=== PATIENT | female | born 1995 | race Caucasian/White ===

== ENCOUNTER 2019-08-31 09:32 | Emergency (ER) | payer MEDICAID ==
[~2019-08-31] VITALS: Ht 160 cm; Wt 68.0 kg
--- NOTE | 2019-08-31 10:03 | PHYS DOC ---
Adult General Chief Complaint Chief Complaint: FLU SYMPTOM HPI HPI Patient is a 23-year-old female who presents to the ER with complaint of fever, body aches, sore throat and congestion with drainage. Patient reports symptom onset yesterday. She has been taking ibuprofen and Tylenol. 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 Patient does not have exposure to coronavirus. She denies shortness of breath Review of Systems Review of Systems All other systems were reviewed and found to be within normal limits, except as documented in this note. Physical Exam Physical Exam Constitutional: Well developed, well nourished, no acute distress, non-toxic appearance. [] HENT: Normocephalic, atraumatic, bilateral external ears normal, oropharynx moist, no oral exudates, nose normal. Mild posterior pharynx erythema Eyes: PERRLA, EOMI, conjunctiva normal, no discharge. [] Neck: Normal range of motion, no tenderness, supple, no stridor. [] Cardiovascular:Heart rate regular rhythm, no murmur [] Lungs & Thorax: Bilateral breath sounds clear to auscultation [] Abdomen: Bowel sounds normal, soft, no tenderness, no masses, no pulsatile masses. [] Skin: Warm, dry, no erythema, no rash. [] Back: No tenderness, no CVA tenderness. [] Extremities: No tenderness, no cyanosis, no clubbing, ROM intact, no edema. [] Neurologic: Alert and oriented X 3, normal motor function, normal sensory function, no focal deficits noted. [] Psychologic: Affect normal, judgement normal, mood normal. [] EKG EKG [] Radiology/Procedures Radiology/Procedures [] Course & Med Decision Making Course & Med Decision Making Pertinent Labs and Imaging studies reviewed. (See chart for details) This patient is seen for fever, body aches, sore throat. Will check for strep and flu. Health department contacted and the patient is not a candidate to be tested for coronavirus. Patient strep and flu are negative. She likely has a viral upper respiratory infection. Will discharge home with instructions to return as needed. Dragon Disclaimer Dragon Disclaimer This electronic medical record was generated, in whole or in part, using a voice recognition dictation system. Departure Departure: Impression: Primary Impression: Viral syndrome Disposition: HOME, SELF-CARE Condition: STABLE Referrals: PCP,NO (PCP) Additional Instructions: Please take ibuprofen and Tylenol alternating every 3-4 hours for fever or body aches. Please return to the ER for worsening symptoms. ZHENG MCBRIDE DO Aug 31, 2019 10:03
[2019-08-31 10:27] VITALS: BP 136/65
[2019-08-31 10:40] LABS: INFLUENZA A PATIENT NEGATIVE (NEGATIVE); INFLUENZA B PATIENT NEGATIVE (NEGATIVE)
== END 2019-08-31 11:15 | disposition home or self-care (01) ==
LOC: ER 09:32
DX: B34.9 Viral infection, unspecified (principal)
CPT/HCPCS: 87804; 99283

== ENCOUNTER 2021-02-02 01:23 | Emergency (ER) | payer MEDICAID ==
[~2021-02-02] VITALS: Ht 160 cm; Wt 66.5 kg
[2021-02-02] MEDS ORDERED: DEXAMETHASONE 4 MG TABLET PO ONE (01:45)
[2021-02-02] MEDS ORDERED: IBUPROFEN 600 MG TABLET. PO ONE (01:45)
--- NOTE | 2021-02-02 01:48 | PHYS DOC ---
Past History Past Medical History: No Pertinent History Past Surgical History: No Surgical History Alcohol Use: None General Adult EDM: Chief Complaint: FEVER HPI: HPI: 25-year-old female presents with report of body aches, generalized malaise, fatigue, and sore throat. Reports symptoms have been ongoing for the past 3 days. Patient reports she was seen at urgent care yesterday and swabbed for COVID-19. Patient does report she has not been immunized for COVID-19. Denies . Denies known sick contacts. Denies known exposure to COVID-19. Patient was instructed that if symptoms worsened to present to the emergency department. Patient reports she felt worse this evening. Reports fever has been ongoing. Patient reports she last took Tylenol approximately 3.5 hours ago. Review of Systems: Review of Systems: Constitutional: Reports fever and chills Eyes: Denies redness or eye pain HENT: Denies nasal congestion; reports sore throat Respiratory: Denies cough or shortness of breath Cardiovascular: Denies chest pain or palpitations GI: Denies abdominal pain, nausea, or vomiting : Denies dysuria or hematuria Musculoskeletal: Denies back pain or joint pain Integument: Denies rash or skin lesions Neurologic: Reports headache; denies focal weakness or sensory changes Complete systems were reviewed and found to be within normal limits, except as documented in this note. Allergies: Allergies: Allergies Coded Allergies Type Severity Reaction Last Updated Verified amoxicillin Allergy Unknown 02/02/21 Yes Physical Exam: PE: Constitutional: Well developed, well nourished, no acute distress, ill but non- toxic appearance HENT: Normocephalic, atraumatic, pharynx clear without exudate or significant erythema, TMs clear bilaterally Eyes: PERRL, EOMI, conjunctiva normal, no discharge, no nystagmus Neck: Normal range of motion, paraspinal tenderness noted, supple, no meningeal signs Lungs & Thorax: No respiratory distress, equal chest rise and fall Abdomen: Soft, no tenderness, no guarding/rebound tenderness/distention Skin: Warm, dry, no erythema, no rash Extremities: No tenderness, ROM intact, no edema Neurologic: Alert and oriented X 3, no focal deficits noted Psychologic: Affect normal, judgment normal Current Patient Data: Vital Signs: Vital Signs Date Time Temp Pulse Resp B/P (MAP) Pulse Ox O2 Delivery O2 Flow Rate FiO2 02/02/21 01:30 103.1 141 28 129/69 98 Room Air EKG: EKG: [] Radiology/Procedures: Radiology/Procedures: PROCEDURE: CHEST AP ONLY AP chest x-ray HISTORY: Upper respiratory infection, Covid infection person under investigation. FINDINGS: Heart size normal. Mediastinal silhouette is normal. No pneumothorax, pulmonary opacities or pleural effusions. The bones are unremarkable. IMPRESSION: Normal exam. Electronically signed by: Broderick Keita MD (02/02/2021 2:18 AM) [facility] Heart Score: C/O Chest Pain: N/A Course & Med Decision Making: Course & Med Decision Making Pertinent Labs and Imaging studies reviewed. (See chart for details) Patient presents with HPI and physical exam consistent for viral syndrome. Patient recently tested for COVID-19 with results pending. Patient complains of sore throat. Rapid strep negative. Symptomatic treatment provided. Fever addressed. CXR without acute process. Patient stable for discharge with outpatient follow-up with PCP. Discussed findi ngs and plan with patient, who acknowledges understanding and agreement. COVID-19 CRITERIA: The patient was evaluated during the global COVID-19 pandemic, and that diagnosis was suspected/considered upon their initial presentation. Their evaluation, treatment and testing was consistent with current guidelines for patients who present with complaints or symptoms that may be related to COVID-19. Kehinde Disclaimer: Kehinde Disclaimer: This electronic medical record was generated, in whole or in part, using a voice recognition dictation system. Departure Departure: Impression: Primary Impression: Viral syndrome Additional Impression: Suspected 2019 novel coronavirus infection Disposition: HOME / SELF CARE / HOMELESS Condition: STABLE Referrals: PCP,NO (PCP) Patient Instructions: Fever, Adult, [id number], Viral Syndrome Additional Instructions: You have been tested for or diagnosed with COVID-19. It is an infection caused by a new type of coronavirus. COVID-19 will cause cold-like or mild flu symptoms in most. It can cause more severe symptoms like problems breathing in some. There is no treatment for COVID-19. The body will clear the infection over time. Self-care will help to ease discomfort. Steps to Take: Self-Care Rest as needed. Healthy habits may help you feel better. Steps include: Choose healthy foods including fruits and vegetables. Drink water throughout the day. Get plenty of sleep each night. If you smoke, try to quit. It may ease breathing. Avoid alcohol. Keep Others Healthy The virus can spread to others. Droplets are released every time you sneeze or cough. The droplets can get into the mouth, nose, or eyes of people near you and lead to infection. To lower the chances of spreading COVID-19 to others: Stay at home until your doctor has said it is safe to leave. If you tested positive this will mean staying isolated until both of the following are true: At least 7 days have passed since the start of illness. You are free of fever for at least 72 hours without the use of medicine. During this time: - Avoid public areas, events, or transportation. Do not return to work or school until your doctor has said it is safe to do so. - Call ahead if you need to go to a medical center. Let them know you may have COVID-19. It will help them guide you where to go. They may also ask you to wear a facemask when you come to the office. - If you call for emergency medical services, let them know you may have COVID- 19. While at home: - Try to avoid close contact with others. Stay about 6 feet away. - If possible, spend most of your time in a separate room from others. - Use a face mask if you will be in close contact with others such as sharing a room or vehicle. - Have someone wipe down common surfaces in the home. Use household air conditioning equipment mechanic every day on areas like doorknobs, counters, or sinks. - Cough or sneeze into a tissue. Throw the tissue away right after use. If a tissue is not available, cough or sneeze into your elbow. - Wash your hands often. Wash them after sneezing or coughing. Use soap and water and wash for at least 20 seconds. Alcohol based hand card cleaner can be used if soap and water is not available. - Do not prepare food for others. Avoid sharing personal items like forks, spoons, or toothbrushes. - Avoid close contact with pets while you are sick. There is no evidence of the virus passing to pets. This is a safety step until more is known about this virus. Isolation can be frustrating. Social interaction can help. Keep in touch with friends and family through phone and tech options. You can still interact with others in your home, just keep a safe distance of about 6 feet. Follow-up: Your doctors office will check in with you to see if there are any changes in your health. You may be asked to keep track of symptoms to share with them. They will also let you know when you are clear to be in public again. Problems to Look Out For: Contact your doctor if your recovery is not going as you expect. Get emergency care if you have problems such as: - Trouble breathing - Nonstop chest pain or pressure - Changes in awareness, confusion, or problems waking - Lips or face have bluish color - Worsening of symptoms If you think you have an emergency, call for emergency medical services right away. As taken from [facility] COVID-19 Assessment COVID-19 Patient Risks: Age 65 or older: No Sign of co-morbidity: No Exp to person + for COVID: No Exp to PUI: No Travel from affected area: No Lower respiratory symptoms: No Fever: Yes Other: Yes PPE Use: Full PPE with N95 mask or PAPR: Yes NELLY LOZADA DO Feb 02, 2021 01:48
[2021-02-02 02:13] VITALS: BP 119/67
--- NOTE | 2021-02-02 02:21 | RAD ---
AP chest x-ray HISTORY: Upper respiratory infection, Covid infection person under investigation. FINDINGS: Heart size normal. Mediastinal silhouette is normal. No pneumothorax, pulmonary opacities o r pleural effusions. The bones are unremarkable. IMPRESSION: Normal exam. Electronically signed by: Broderick Keita MD (02/02/2021 2:18 AM) [facility]
== END 2021-02-02 02:33 | disposition home or self-care (01) ==
LOC: ER 01:23
DX: B34.9 Viral infection, unspecified (principal); Z20.822 Contact with and (suspected) exposure to COVID-19; Z88.1 Allergy status to other antibiotic agents
CPT/HCPCS: 71045; 87070; 87880; 99284; J8540

== ENCOUNTER 2021-02-06 17:04 | Emergency (ER) | payer MEDICAID ==
[~2021-02-06] VITALS: Ht 160 cm; Wt 66.0 kg
--- NOTE | 2021-02-06 20:29 | PHYS DOC ---
Past History Past Medical History: No Pertinent History Additional Past Medical Histor: Bipolar, Uterine polyps (LAYTON TYLER APRN) Past Surgical History: Other Additional Past Surgical Histo: Lap (LAYTON TYLER APRN) Alcohol Use: None (LAYTON TYLER APRN) General Adult EDM: Chief Complaint: ABDOMINAL PAIN HPI: HPI: Patient is a 25-year-old female who presents to the ER for left upper quadrant pain with nausea, vomiting, and fevers that started 1 week ago. Patient reports she has been seen for the symptoms in urgent care in 2 ERs and had a normal work-up. She had negative Covid and mono testing on Saturday. Patient rates pain 8 out of 10. No treatment prior to arrival. She states she called Dr. Jolley who is her primary care provider and he told her to go to the ER for CT scan. Patient denies hematuria, dysuria, diarrhea, blood in stools or vomit, alcohol use. (LAYTON TYLER APRN) Review of Systems: Review of Systems: 14 body systems of the review of systems have been reviewed. See HPI for pertinent positive and negative responses, otherwise all other systems are negative, nonpertinent or noncontributory (LAYTON TYLER APRN) Current Medications: Current Meds: Current Medications Medications (Trade) Dose Ordered Sig/Dayan Start Time Stop Time Status Last Admin Dose Admin Ondansetron HCl (Zofran) 4 mg 1X ONCE 02/06/21 20:30 02/06/21 20:31 UNV Sodium Chloride 1,000 ml @ 1,000 mls/hr 1X ONCE 02/06/21 20:30 02/06/21 21:29 UNV (LAYTON TYLER APRN) Allergies: Allergies: Allergies Coded Allergies Type Severity Reaction Last Updated Verified amoxicillin Allergy Unknown 02/02/21 Yes (LAYTON TYLER APRN) Physical Exam: PE: Constitutional: Well developed, well nourished, no acute distress, non-toxic appearance. [] HENT: Normocephalic, atraumatic, bilateral external ears normal, oropharynx moist, no oral exudates, nose normal. [] Eyes: PERRL, EOMI, conjunctiva normal, no discharge. [] Neck: Normal range of motion, no tenderness, supple, no stridor. [] Cardiovascular:Heart rate regular rhythm, no murmur [] Lungs & Thorax: Bilateral breath sounds clear to auscultation [] Abdomen: Bowel sounds normal, soft, left upper quadrant pain with palpation, no rebound tenderness, no guarding, no masses, no pulsatile masses. [] Skin: Warm, dry, no erythema, no rash no jaundice. [] Back: Normal range of motion Extremities: No tenderness, no cyanosis, no clubbing, ROM intact, no edema. [] Neurologic: Alert and oriented X 3, normal motor function, normal sensory function, no focal deficits noted. [] Psychologic: Affect normal, judgement normal, mood normal. [] (LAYTON TYLER APRN) Current Patient Data: Vital Signs: Vital Signs Date Time Temp Pulse Resp B/P (MAP) Pulse Ox O2 Delivery O2 Flow Rate FiO2 02/06/21 17:28 98.3 93 16 148/96 92 Room Air (LAYTON TYLER APRN) EKG: EKG: [] (LAYTON TYLER APRN) Radiology/Procedures: Radiology/Procedures: PROCEDURE: CT ABD PELV W/ IV CONTRST ONLY CT ABDOMEN+PELVIS W History: l sided abdominal pain Comparison: None. Technique: After administration of intravenous contrast, helical CT of the abdomen and pelvis was performed from the lung bases through the ischial tuberosities. Coronal and sagittal reconstructions were obtained. 75 mL of Omnipaque 300 were used. One or more of the following dose reduction techniques were utilized: Automated exposure control (AEC), Adjustment of mA and/or kV according to patient size, Use of iterative reconstruction technique such as ASiR, CT scan done according to ALARA and image gently/image wisely Abdomen Findings: The visualized lung bases are clear. The liver, gallbladder, pancreas, spleen, and bilateral adrenal glands are normal. Symmetric renal enhancement. There is no focal renal mass. There is no hydronephrosis. The visualized loops of small bowel are normal. The visualized loops of large bowel are normal. There is no evidence of bowel obstruction. Appendix is normal. There is no free fluid. There is no mesenteric or retroperitoneal adenopathy. The abdominal aorta is normal in caliber. Pelvis Findings: Urinary bladder is normal. Retroflexed uterus. No pelvic free fluid. There are a couple of conspicuous bilateral external iliac chain lymph nodes.. There is no acute bony abnormality. IMPRESSION: 1. No acute findings. 2. There are a couple of conspicuous bilateral iliac chain lymph nodes, nonspecific but probably reactive. Electronically signed by: Ebonie Manzano MD (02/06/2021 9:54 PM) [facility] DICTATED AND SIGNED BY: EBONIE MANZANO MD DATE: 02/06/212148 CC: STIVEN NEUMANN MD; EMERGENCY,DEPARTMENT; LAYTON TYLER CLAY ARTIST ~MTH0 0 [] (LAYTON TYLER APRN) Impressions: CT ABDOMEN+PELVIS W History: l sided abdominal pain Comparison: None. Technique: After administration of intravenous contrast, helical CT of the abdomen and pelvis was performed from the lung bases through the ischial tuberosities. Coronal and sagittal reconstructions were obtained. 75 mL of Omnipaque 300 were used. One or more of the following dose reduction techniques were utilized: Automated exposure control (AEC), Adjustment of mA and/or kV according to patient size, Use of iterative reconstruction technique such as ASiR, CT scan done according to ALARA and image gently/image wisely Abdomen Findings: The visualized lung bases are clear. The liver, gallbladder, pancreas, spleen, and bilateral adrenal glands are normal. Symmetric renal enhancement. There is no focal renal mass. There is no hydronephrosis. The visualized loops of small bowel are normal. The visualized loops of large bowel are normal. There is no evidence of bowel obstruction. Appendix is normal. There is no free fluid. There is no mesenteric or retroperitoneal adenopathy. The abdominal aorta is normal in caliber. Pelvis Findings: Urinary bladder is normal. Retroflexed uterus. No pelvic free fluid. There are a couple of conspicuous bilateral external iliac chain lymph nodes.. There is no acute bony abnormality. IMPRESSION: 1. No acute findings. 2. There are a couple of conspicuous bilateral iliac chain lymph nodes, nonspecific but probably reactive. Electronically signed by: Ebonie Manzano MD (02/06/2021 9:54 PM) [facility] DICTATED AND SIGNED BY: EBONIE MANZANO MD DATE: 02/06/212148 CC: STIVEN NEUMANN MD; EMERGENCY,DEPARTMENT; LAYTON TYLER APRN ~MTH0 0 (RAJESH CAMERON DO) Heart Score: C/O Chest Pain: No Risk Factors: Risk Factors: DM, Current or recent (<one month) smoker, HTN, HLP, family history of CAD, obesity. Risk Scores: Score 0 - 3: 2.5% MACE over next 6 weeks - Discharge Home Score 4 - 6: 20.3% MACE over next 6 weeks - Admit for Clinical Observation Score 7 - 10: 72.7% MACE over next 6 weeks - Early Invasive Strategies (LAYTON TYLER APRN) Course & Med Decision Making: Course & Med Decision Making Pertinent Labs and Imaging studies reviewed. (See chart for details) Patient is a 25-year-old female being seen in the ER for left upper quadrant pain with nausea/vomiting/fevers. Work-up in the ER consisted of blood work, urinalysis, CT scan of abdomen. Patient treated with fluids and nausea medication in the ER. Leukopenia noted. UA unremarkable. CT scan of abdomen unremarkable. CMP and lipase pending at this time. I discussed patients case with Dr. Cameron and he will assume patient care at this time. 2201. (LAYTON TYLER APRN) Course & Med Decision Making The patient's liver enzymes are quite elevated. We ordered an acute hepatic profile. I have advised that the patient make an appointment with a performance analyst for follow-up. Of also advised that she see her PCP to repeat her liver labs in about a week. Have given her a dose of Reglan and Benadryl for her continued nausea. Patient is feeling better at this time. She is stable for discharge. (RAJESH CAMERON DO) Dragon Disclaimer: Dragon Disclaimer: This electronic medical record was generated, in whole or in part, using a voice recognition dictation system. (LAYTON TYLER APRN) Departure Departure: Impression: Primary Impression: Elevated liver enzymes Additional Impression: Abdominal pain Disposition: HOME / SELF CARE / HOMELESS Condition: STABLE Referrals: STIVEN NEUMANN MD (PCP) Patient Instructions: Abdominal Pain (Nonspecific) LAYTON TYLER APRN Feb 06, 2021 20:29 RAJESH CAMERON DO Feb 06, 2021 23:09
[2021-02-06] MEDS ORDERED: IV NORMAL SALINE 1,000ML 1,000 ML IV ONE (20:30)
[2021-02-06] MEDS ORDERED: ONDANSETRON PF 4 MG/2 ML VIAL. IVP ONE (20:30)
[2021-02-06] MEDS ORDERED: IOHEXOL 300 MG/ML 75 ML VIAL. IV ONE (20:45)
[2021-02-06 21:34] LABS: BASO % 0 % (0-3); EOS # 0.1 x10^3/uL (0.0-0.7); EOS % 4 % (0-3); HEMATOCRIT 37.4 % (36.0-47.0); HEMOGLOBIN 12.8 g/dL (12.0-15.5); LYMPH # 0.5 x10^3/uL (1.0-4.8); LYMPH % 18 % (24-48); MEAN CORPUSCULAR HEMOGLOBIN 31 pg (25-35); MEAN CORPUSCULAR HGB CONC 34 g/dL (31-37); MEAN CORPUSCULAR VOLUME 92 fL (79-100); MONO # 0.2 x10^3/uL (0.0-1.1); MONO % 9 % (0-9); NEUT # 1.7 x10^3uL (1.8-7.7); NEUT % 69 % (31-73); PLATELET COUNT 143 x10^3/uL (140-400); RED BLOOD COUNT 4.08 x10^6/uL (3.50-5.40); RED CELL DISTRIBUTION WIDTH 13.8 % (11.5-14.5); WHITE BLOOD COUNT 2.5 x10^3/uL (4.0-11.0)
[2021-02-06 21:42] LABS: BILIRUBIN,URINE SMALL (NEG); CLARITY,URINE HAZY; COLOR,URINE YELLOW; GLUCOSE,URINE 100 mg/dL (NEG); NITRITE,URINE NEG (NEG)
[2021-02-06 21:43] LABS: BACTERIA,URINE FEW /HPF (0-FEW); RBC,URINE 0 /HPF (0-2); SQUAMOUS EPITHELIAL CELL,UR FEW /LPF
--- NOTE | 2021-02-06 21:57 | RAD ---
CT ABDOMEN+PELVIS W History: l sided abdominal pain Comparison: None. Technique: After administration of intravenous contrast, helical CT of the abdomen and pelvis was per formed from the lung bases through the ischial tuberosities. Coronal and sagittal reconstructions wer e obtained. 75 mL of Omnipaque 300 were used. One or more of the following dose reduction techniques were utilized: Automated exposure control (AEC), Adjustment of mA and/or kV according to patient size , Use of iterative reconstruction technique such as ASiR, CT scan done according to ALARA and image g ently/image wisely Abdomen Findings: The visualized lung bases are clear. The liver, gallbladder, pancreas, spleen, and bilateral adrenal glands are normal. Symmetric renal enhancement. There is no focal renal mass. There is no hydronephrosis. The visualized loops of small bowel are normal. The visualized loops of large bowel are normal. There is no evidence of bowel obstruction. Appendix is normal. There is no free fluid. There is no mesenteric or retroperitoneal adenopathy. The abdominal aorta is normal in caliber. Pelvis Findings: Urinary bladder is normal. Retroflexed uterus. No pelvic free fluid. There are a couple of conspicuou s bilateral external iliac chain lymph nodes.. There is no acute bony abnormality. IMPRESSION: 1. No acute findings. 2. There are a couple of conspicuous bilateral iliac chain lymph nodes, nonspecific but probably reac tive. Electronically signed by: Ashish Manzano MD (02/06/2021 9:54 PM) [facility]
[2021-02-06 22:24] LABS: CALCIUM 6.9 mg/dL (8.5-10.1); CREATININE 0.4 mg/dL (0.6-1.0); GFR 191.5; POTASSIUM 4.2 mmol/L (3.5-5.1)
[2021-02-06 22:29] LABS: ALBUMIN 2.6 g/dL (3.4-5.0); ALBUMIN/GLOBULIN RATIO 0.9 (1.0-1.7); TOTAL BILIRUBIN 0.8 mg/dL (0.2-1.0); TOTAL PROTEIN 5.4 g/dL (6.4-8.2)
[2021-02-06] MEDS ORDERED: diphenhydrAMINE 50 MG/ML VIAL IVP ONE (23:15)
[2021-02-06] MEDS ORDERED: METOCLOPRAMIDE HCL 10 MG/2 ML VIAL. IVP ONE (23:15)
[2021-02-07] MEDS ORDERED: ONDA4TAB12 PO
[2021-02-07 00:05] VITALS: BP 132/78
== END 2021-02-07 00:05 | disposition home or self-care (01) ==
LOC: ER 17:04
DX: R74.8 Abnormal levels of other serum enzymes (principal); R10.12 Left upper quadrant pain; R11.2 Nausea with vomiting, unspecified; F31.9 Bipolar disorder, unspecified; Z88.1 Allergy status to other antibiotic agents
CPT/HCPCS: 36415; 74177; 80053; 81001; 81025; 83690; 85025; 86705; 86709; 86803; 87340; 96361; 96374; 96375; 99285; J1200; J2405; J2765; J7030; Q9967

== ENCOUNTER 2021-04-11 18:19 | Emergency (ER) | payer BC, MEDICAID ==
[~2021-04-11] VITALS: Ht 160 cm; Wt 65.5 kg
[~2021-04-11 18:19] MED LIST: ONDA4TAB12 PO
[2021-04-11] MEDS ORDERED: IBUPROFEN 600 MG TABLET. PO ONE (18:45)
[2021-04-11] MEDS ORDERED: IV NORMAL SALINE 1,000ML 1,000 ML IV ONE (18:45)
--- NOTE | 2021-04-11 19:03 | PHYS DOC ---
Past History Additional Past Medical Histor: Bipolar, Uterine polyps, liver resolved, adhd Past Surgical History: Other Additional Past Surgical Histo: Lap Smoking: Non-smoker Alcohol Use: None Drug Use: None General Adult EDM: Chief Complaint: FEVER HPI: HPI: Patient is a 25 yo F with PMH of bipolar disorder presenting for fever and palpitations that began about 3 days ago. She reports that this has previously occurred, along with elevated liver enzymes, and was told this was due to a reaction to her lamotrigine. She has now been taking abilify for 3-4 weeks, which is a similar timeline to her previous episode of unexplained fever. She reports that her fever was been as high as 103 and improves to 100 with tylenol/ibuprofen. She reports the sensation that her heart is skipping beats but denies chest pain or shortness of breath. She denies headache, cough, abdominal pain, n/v, muscle rigidity, and urinary symptoms. Denies COVID vaccination however patient was diagnosed with COVID-19 the beginning of February 2021. Patient reports her symptoms included loss of smell and taste but have since improved. Review of Systems: Review of Systems: Constitutional: Reports fever and chills; denies weight loss Eyes: Denies redness or eye pain HENT: Denies nasal congestion or sore throat Respiratory: Denies cough or shortness of breath Cardiovascular: Denies chest pain; reports palpitations GI: Denies abdominal pain, nausea, or vomiting : Denies dysuria or hematuria Musculoskeletal: Denies neck pain or joint pain Integument: Denies rash or skin lesions Neurologic: Denies headache, focal weakness or sensory changes Complete systems were reviewed and found to be within normal limits, except as documented in this note. Current Medications: Current Meds: Current Medications Medications (Trade) Dose Ordered Sig/Dayan Start Time Stop Time Status Last Admin Dose Admin Ibuprofen (Motrin) 600 mg 1X ONCE 04/11/21 18:45 04/11/21 18:49 DC 04/11/21 18:45 600 MG Sodium Chloride 1,000 ml @ 1,000 mls/hr 1X ONCE 04/11/21 18:45 04/11/21 19:44 Allergies: Allergies: Allergies Coded Allergies Type Severity Reaction Last Updated Verified lamotrigine Allergy Severe elevated liver enzymes, fever 04/11/21 Yes amoxicillin Allergy Unknown 02/02/21 Yes Physical Exam: PE: Constitutional: Well developed, well nourished, no acute distress, non-toxic appearance HENT: Normocephalic, atraumatic, TMs clear bilaterally, nares clear, pharynx without erythema or exudate Eyes: EOMI, conjunctiva normal, no discharge Neck: Normal range of motion, no tenderness, supple, no meningeal signs Lungs & Thorax: No respiratory distress, equal chest rise and fall Cardiovascular: Tachycardia, normal heart sounds Abdomen: Soft, no tenderness, no guarding/rebound tenderness/distention Skin: Warm, dry, no erythema, no rash Back: No tenderness, no CVA tenderness Extremities: No tenderness, ROM intact, no edema Neurologic: Alert and oriented X 3, normal motor function, normal sensory function, no focal deficits noted Psychologic: Affect normal, judgment normal Current Patient Data: Vital Signs: Vital Signs Date Time Temp Pulse Resp B/P (MAP) Pulse Ox O2 Delivery O2 Flow Rate FiO2 04/11/21 18:41 100.5 137 20 110/64 (79) 99 Room Air EKG: EKG: Completed at 1854, sinus tachycardia at a rate of 115 bpm, no acute ST segment changes, QRS 82 ms, QT 300 ms, QTc 417 ms Radiology/Procedures: Radiology/Procedures: PROCEDURE: CT ANGIOGRAPHY CHEST CTA CHEST INDICATION: fever, tachycardia, eval for PE Comparison: None. TECHNIQUE: Following the uneventful administration of intravenous contrast, 100 cc Omnipaque 350, axial CT sections were obtained through the lungs and upper abdomen. Multiplanar reconstructions and MIP images were obtained. PQRS compliance statement: One or more of the following individualized dose reduction techniques were utilized for this examination: 1. Automated exposure control 2. Adjustment of the mA and/or kV according to patient size 3. Use of iterative reconstruction technique FINDINGS: Lungs and Airways: No pulmonary mass or consolidation. No abnormality of the central airways. Pleura: The pleural spaces are normal. Heart and Mediastinum: The visualized thyroid is normal in size and attenuation. Bilateral axillary lymphadenopathy. Conspicuous supraclavicular lymph nodes. The heart and pericardium are within normal limits. The great vessels of the thorax are normal. Residual thymic tissue. Abdomen: Limited images through the upper abdomen show no abnormality of the visualized organs. Bones and Soft Tissues: The visualized bones and chest wall soft tissues are within normal limits. IMPRESSION: 1. Bilateral axillary lymphadenopathy and conspicuous supraclavicular lymph nodes, concerning for lymphoproliferative disorder or metastatic disease. Clinical correlation is advised. 2. No evidence of pulmonary thromboembolic disease. 3. No pulmonary mass or consolidation. Electronically signed by: Ashish Manzano MD (04/11/2021 8:58 PM) [facility] Heart Score: C/O Chest Pain: No Course & Med Decision Making: Course & Med Decision Making Pertinent Labs and Imaging studies reviewed. (See chart for details) Patient is a 25 yo F with PMH of bipolar disorder presenting with fever and palpitations. She previously had a reaction to her lamotrigine that caused the same symptoms along with elevated liver enzymes. Labs were largely unremarkable besides an elevated d-dimer of .8 and hyponatremia of 134 along with hypomagnesemia of 1.7. Magnesium replaced. Urine was negative. EKG showed sinus tachycardia with no acute ST segment changes. CT chest without signs of PE or pneumonia. Nonspecific bilateral axillary lymph nodes and supraclavicular lymph node enlargement noted. Radiology concern for possible lymphoproliferative disorder versus metastatic disease. Axillary physical exam not overly impressive. Patient was given ibuprofen and 1L NS with improvement in her fever. Patient stable for discharge with outpatient follow-up with PCP. A copy of CT s can provided for patient to give to PCP and/or hematology/oncology for further evaluation. Discussed findings and plan with patient, who acknowledges understanding and agreement. Kehinde Disclaimer: Kehinde Disclaimer: This electronic medical record was generated, in whole or in part, using a voice recognition dictation system. Departure Departure: Impression: Primary Impression: Fever Qualified Codes: R50.9 - Fever, unspecified Additional Impressions: Abnormal finding on radiology exam Hypomagnesemia Disposition: HOME / SELF CARE / HOMELESS Condition: STABLE Referrals: STIVEN NEUMANN MD (PCP) Patient Instructions: Fever of Unknown Origin, Fever, Adult, [id number], Hypomagnesemia Additional Instructions: Give copy of CT results to your family provider who may refer you to a hematology/oncology for further evaluation. Hold antibiotics for 48 hours. If symptoms worsen or for fever > 100.3 F after 48 hours then start antibiotics as prescribed. Scripts Cephalexin (KEFLEX) 500 Mg Capsule 1 CAP PO QID for Infection for 7 Days, #28 CAP Prov: NELLY LOZADA DO 04/11/21 NELLY LOZADA DO Apr 11, 2021 19:03
[2021-04-11 19:35] LABS: BASO % 0 % (0-3); EOS % 2 % (0-3); HEMATOCRIT 40.4 % (36.0-47.0); HEMOGLOBIN 13.8 g/dL (12.0-15.5); LYMPH # 0.4 x10^3/uL (1.0-4.8); LYMPH % 14 % (24-48); MEAN CORPUSCULAR HEMOGLOBIN 32 pg (25-35); MEAN CORPUSCULAR HGB CONC 34 g/dL (31-37); MEAN CORPUSCULAR VOLUME 95 fL (79-100); MONO # 0.2 x10^3/uL (0.0-1.1); MONO % 7 % (0-9); NEUT # 2.4 x10^3uL (1.8-7.7); NEUT % 77 % (31-73); PLATELET COUNT 154 x10^3/uL (140-400); RED BLOOD COUNT 4.28 x10^6/uL (3.50-5.40); RED CELL DISTRIBUTION WIDTH 12.9 % (11.5-14.5); WHITE BLOOD COUNT 3.1 x10^3/uL (4.0-11.0)
[2021-04-11 19:43] LABS: CALCIUM 8.6 mg/dL (8.5-10.1); CREATININE 0.7 mg/dL (0.6-1.0); GFR 100.4
[2021-04-11 19:48] LABS: ALBUMIN 3.8 g/dL (3.4-5.0); ALBUMIN/GLOBULIN RATIO 0.9 (1.0-1.7); MAGNESIUM 1.7 mg/dL (1.8-2.4); TOTAL BILIRUBIN 0.3 mg/dL (0.2-1.0); TOTAL PROTEIN 8.2 g/dL (6.4-8.2)
[2021-04-11] MEDS ORDERED: MAGNESIUM SULFATE 2GM 50 ML IV ONE (20:15)
[2021-04-11] MEDS ORDERED: IOHEXOL 350 MG/ML 100 ML VIAL. IV ONE (20:15)
[2021-04-11 20:40] LABS: BILIRUBIN,URINE NEG (NEG); CLARITY,URINE CLEAR; COLOR,URINE YELLOW; GLUCOSE,URINE NEG (NEG)
[2021-04-11 20:41] LABS: BACTERIA,URINE 0 /HPF (0-FEW); NITRITE,URINE NEG (NEG); RBC,URINE 0 /HPF (0-2); SQUAMOUS EPITHELIAL CELL,UR MANY /LPF; UROBILINOGEN,URINE 0.2 mg/dL (0.2 mg/dL); WBC,URINE 0 /HPF (0-4)
--- NOTE | 2021-04-11 21:01 | RAD ---
CTA CHEST INDICATION: fever, tachycardia, eval for PE Comparison: None. TECHNIQUE: Following the uneventful administration of intravenous contrast, 100 cc Omnipaque 350, axi al CT sections were obtained through the lungs and upper abdomen. Multiplanar reconstructions and MIP images were obtained. RS compliance statement: One or more of the following individualized dose reduction techniques were utilized for this examinat ion: 1. Automated exposure control 2. Adjustment of the mA and/or kV according to patient size 3. Use of iterative reconstruction technique FINDINGS: Lungs and Airways: No pulmonary mass or consolidation. No abnormality of the central airways. Pleura: The pleural spaces are normal. Heart and Mediastinum: The visualized thyroid is normal in size and attenuation. Bilateral axillary l ymphadenopathy. Conspicuous supraclavicular lymph nodes. The heart and pericardium are within normal limits. The great vessels of the thorax are normal. Residual thymic tissue. Abdomen: Limited images through the upper abdomen show no abnormality of the visualized organs. Bones and Soft Tissues: The visualized bones and chest wall soft tissues are within normal limits. IMPRESSION: 1. Bilateral axillary lymphadenopathy and conspicuous supraclavicular lymph nodes, concerning for lym phoproliferative disorder or metastatic disease. Clinical correlation is advised. 2. No evidence of pulmonary thromboembolic disease. 3. No pulmonary mass or consolidation. Electronically signed by: Ashish Manzano MD (04/11/2021 8:58 PM) [facility]
[2021-04-11] MEDS ORDERED: CEPH500C PO (21:54)
[2021-04-11 22:15] VITALS: BP 112/64
[2021-04-11 22:30] LABS: MONONUCLEOSIS PATIENT NEGATIVE (NEGATIVE)
--- NOTE | 2021-04-12 13:12 | EKG ---
[address] [address] Test Date: 2021-04-11 Test Time: 18:54:06 Pat Name: SOPHIA FINN Department: Room: Gender: F Transportation Superintendent: MILY : 1995 Requested By: NELLY LOZADA Order Number: [id number] Reading MD: Ziggy Hdz Measurements Intervals Ferdinand Rate: 115 P: 38 [place]: 106 QRS: 5 QRSD: 82 T: 107 QT: 300 QTc: 417 Interpretive Statements SINUS TACHYCARDIA QRS(T) CONTOUR ABNORMALITY CONSISTENT WITH INFERIOR MYOCARDIAL DAMAGE ST & T ABNORMALITY, CONSIDER HIGH LATERAL ISCHEMIA OR LEFT VENTRICULAR STRAIN ABNORMAL ECG RI6.02 No previous ECG available for comparison Electronically Signed On 04-12-2021 15:58:20 CDT by Ziggy Hdz
[2021-04-12 16:08] LABS: FREE T4 0.82 ng/dL (0.76-1.46); THYROID STIM HORMONE (TSH) 0.952 uIU/mL (0.358-3.740)
== END 2021-04-11 22:27 | disposition home or self-care (01) ==
LOC: ER 18:19
DX: E83.42 Hypomagnesemia (principal); R93.1 Abnormal findings on diagnostic imaging of heart and coronary circulation; R50.9 Fever, unspecified; R00.2 Palpitations; F31.9 Bipolar disorder, unspecified; Z88.1 Allergy status to other antibiotic agents; Z88.8 Allergy status to other drugs, medicaments and biological substances
CPT/HCPCS: 36415; 71275; 80053; 81001; 81025; 83605; 83690; 83735; 84439; 84443; 85025; 85379; 86308; 87040; 93005; 96361; 96365; 96366; 99285; J3475; J7030; Q9967